=== PATIENT | female | born 1985 | race Caucasian/White ===

== ENCOUNTER → 2019-01-24 16:26 | Outpatient (CLI) | payer OTHER, SELFPAY | PROVIDERS: PCP Family Medicine; Visit Provider Family Medicine ==

== ENCOUNTER → 2019-01-27 08:11 | Outpatient (CLI) | payer OTHER, SELFPAY ==
[2019-01-27 09:56] LABS: Add Manual Diff / Slide Review NO; Basophils Absolute Auto 0 /uL (0-100); Basophils Percent Auto 0.5 % (0-2); Eosinophils Absolute Auto 0 /uL (0-450); Eosinophils Percent Auto 0.3 % (2-4); Hematocrit 41.3 % (36-46); Hemoglobin 13.8 g/dL (12.0-16.0); Lymphocytes Absolute Auto 1800 /uL (1100-4500); Lymphocytes Percent Auto 28.8 % (25-40); Mean Corpuscular HGB Conc 33.5 % (30-36); Mean Corpuscular Hemoglobin 30.7 PG (26-34); Mean Corpuscular Volume 91.7 fL (80-100); Monocytes Absolute Auto 300 /uL (0-900); Monocytes Percent Auto 4.3 % (3-14); Neutrophils Absolute Auto 4000 /uL (1500-7000); Neutrophils Percent Auto 66.1 % (50-75); Platelet Count 287 X10^3/uL (150-400); Red Cell Distribution Width 13.5 % (11.6-14.8); White Blood Cell Count 6.1 X10^3/uL (4.5-11.0)
[2019-01-27 09:57] LABS: Appearance Urine UA CLEAR; Bilirubin Urine UA NEGATIVE (NEGATIVE); Color Urine UA YELLOW; Glucose Urine UA NEGATIVE (Negative); Ketones Urine UA NEGATIVE (NEGATIVE); Leukocyte Esterase Urine UA NEGATIVE (NEGATIVE); Nitrite Urine UA NEGATIVE (Negative); Occult Blood Urine UA NEGATIVE (Negative); Protein Urine UA NEGATIVE (Negative); Urobilinogen Urine UA 0.2 E.U./dL (0.2)
[2019-01-27 10:28] LABS: Alanine Aminotransferase 23 IU/L (9-52); Albumin 4.4 g/dL (3.5-5.0); Albumin Globulin Ratio 1.7 (1.0-2.8); Alkaline Phosphatase 42 U/L (38-126); Aspartate Aminotransferase 19 IU/L (14-36); BUN Creatinine Ratio 11.4 (6-22); Bilirubin Total 0.6 mg/dL (0.2-1.3); Blood Urea Nitrogen 8 mg/dL (7-17); Calcium 9.3 mg/dL (8.4-10.2); Carbon Dioxide 26 mmol/L (22-32); Chloride 102 mmol/L (98-107); Cholesterol 166 mg/dL (140-199); Estimated Glomerular Filt Rate > 60.0 mL/min (>60); Globulin 2.6 g/dL (1.7-4.1); Glucose 87 mg/dL (70-100); HDL Cholesterol 98 mg/dL (40-60); HEMOLYSIS < 15 (0-50); LDL Cholesterol Calculated 53 mg/dL (<100); Potassium 4.6 mmol/L (3.4-5.1); Sodium 138 mmol/L (137-145); Triglycerides 75 mg/dL (35-150)
[2019-01-27 10:52] LABS: Thyroid Stimulating Hormone 1.11 uIU/mL (0.47-4.68)
[2019-01-27 11:15] LABS: HIV 1 and 2 Antibody NEGATIVE (NEGATIVE)
[2019-01-30 10:39] LABS: RPR Screen Nonreactive (Nonreactive)
== END ==
PROVIDERS: PCP Family Medicine; Visit Provider Family Medicine
DX: Z00.00 Encounter for general adult medical examination without abnormal findings (principal); N80.9 Endometriosis, unspecified; Z20.2 Contact with and (suspected) exposure to infections with a predominantly sexual mode of transmission; Z13.220 Encounter for screening for lipoid disorders; Z13.29 Encounter for screening for other suspected endocrine disorder
CPT/HCPCS: 36415; 80053; 80061; 81003; 84443; 85025; 86592; 86703

== ENCOUNTER 2019-08-13 17:35 | Emergency (ER) | payer OTHER, SELFPAY ==
[2019-08-13 17:36] VITALS: BP 127/78; PULSE 74; RESP 18; TEMP 36.6; O2SAT 100; BMI 22.8
[2019-08-13] MEDS: TET,DIPH,PERTUSS(ACELL),VAC/PF 0.5 ML SYRINGE IM (17:56)
[2019-08-13] MEDS: PROPARACAINE 0.5% OPHTH SOL 1 DROPS EYE-RIGHT (17:57)
[2019-08-13 19:41] VITALS: BP 112/72; PULSE 78; RESP 17; O2SAT 99
--- NOTE | 2019-08-13 21:04 | ED.EYEPROB ---
HPI - Eye Problem <Ros Kunz, [employer] - Last Filed: 08/13/19 21:11> General Chief complaint: Eye Problems Stated complaint: Stick into eye at right eye at work Time Seen by Provider: 08/13/19 18:56 Source: patient Mode of arrival: Ambulatory Limitations: no limitations History of Present Illness HPI Narrative: The patient is a 33-year-old female marijuana user with history of eye injury who presents with a chief complaint of ?I have a corneal abrasion my eye.She states that she was struck in the eye by a stick today at work. She states her tetanus is not up-to-date. She denies any visual changes. She states her vision as as per usual. Though her eyes painful. She states that to this eye, has astigmatism in that eye. She denies any double vision or haloing of lights. She denies blurry vision. She states that her vision is usual for that eye. She presents to the emergency department stating she just needs ?fluorescein and a Wood's lamp.She states she rinsed her eye out. She denies any foreign body sensation. She does not wear contacts. She states that the pain feels like a scratch on the top of her eye. Related Data Home Medications Medication Instructions Recorded Confirmed Vitamins (PRENAVITE) 1 tab PO QDAY #0 09/05/16 01/24/19 cholecalciferol (vitamin D3) 1,000 PO BID #0 01/31/17 01/24/19 [Vitamin D3] vitamin B complex [B 1 tab PO QDAY #0 01/31/17 01/24/19 Complex-Vitamin B12] sumatriptan succinate [Imitrex] 25 mg PRN PRN #0 06/08/17 01/24/19 omega-3 fatty acids-fish oil 300 1 cap PO BID 01/27/18 01/24/19 mg-1,000 mg capsule topiramate 25 mg tablet 50 mg PO BID #0 tab 01/27/18 01/24/19 Previous Rx's Medication Instructions Recorded gabapentin [Neurontin] 300 mg PO TID #90 cap 01/31/17 meloxicam 7.5 mg tablet 7.5 mg PO AMCC #30 tab 01/27/18 pantoprazole 40 mg tablet,delayed 40 mg PO BID #180 01/27/18 release drospirenone 3 mg-ethinyl 1 tab PO DAILY #84 tab 06/12/19 estradiol 0.02 mg tablet polymyxin B sulf-trimethoprim 1 drop EYE-RIGHT QID 5 Days #10 ml 08/13/19 Allergies Allergy/AdvReac Type Severity Reaction Status Date / Time tramadol [From ULTRAM] Allergy Unknown Verified 01/24/19 15:30 Review of Systems <ANA ROSA El - Last Filed: 08/13/19 21:11> Review of Systems Narrative: GENERAL: Denies chills, fatigue, malaise, fever, sweats. HEENT: See HPI RESPIRATORY: Denies dyspnea, cough, wheezing, hemoptysis, sputum. CARDIOVASCULAR: Denies chest pain, palpitations, orthopnea, edema, GASTROINTESTINAL: Denies nausea, vomiting, abdominal pain, diarrhea, constipation, melena. : Denies dysuria, frequency, incontinence, hematuria, urinary retention. MUSCULOSKELETAL: denies weakness, joint pain, or bony pain SKIN: Denies rash, skin lesions, or other NEUROLOGIC: Denies weakness, headache, numbness, change in speech, confusion, seizures, incoordination. PSYCHIATRIC: No concerning psychosocial issues. 12 point review of systems is negative except for those stated above Patient History <ANA ROSA El - Last Filed: 08/13/19 21:11> Medical History Anemia (Inactive ~2009) Anemia (Resolved 2009) Ankle pain (Inactive ~2008) Ankle pain (Chronic 2008) Anxiety (Inactive ~2009) Anxiety (Chronic 2009) Chronic headaches (Chronic 2009) Depression (Inactive ~2009) Depression (Chronic 2009) ETD (eustachian tube dysfunction) (Chronic 2008) Foot pain (Inactive ~2008) Foot pain (Chronic 2008) Gastric ulcer (Inactive ~2007) Gastric ulcer (Resolved 2007) Gastroparesis (Inactive ~2010) Gastroparesis (Resolved 2010) GERD (gastroesophageal reflux disease) (Inactive ~2007) GERD (gastroesophageal reflux disease) (Chronic 2007) GI bleed (Inactive ~2007) GI bleeding (Resolved 2007) Headache (Inactive ~2009) Hearing loss (Inactive ~2009) Hearing loss (Chronic 2009) Heavy menses (Inactive ~2001) History of heavy periods (Chronic 2001) History of recurrent ear infection (Inactive ~1990) History of recurrent ear infection (Chronic 1990) IBS (irritable bowel syndrome) (Chronic 2008) Irritable bowel syndrome (Inactive ~2008) Knee pain (Inactive ~2005) Ovarian cyst (Inactive ~2008) Ovarian cyst (Resolved 2008) Right knee pain (Chronic 2005) Shoulder pain (Inactive ~2011) Shoulder pain (Chronic 2011) Tinnitus (Inactive ~2008) Tinnitus (Chronic 2008) Surgical History History of Adams fundoplication (Resolved 08/2011) S/P tubal ligation (Resolved) Status post delivery (Resolved 04/12/13) Status post delivery (Resolved 12/20/16) Status post knee surgery (Resolved 2005) Status post myringotomy with tube placement of both ears (Resolved) Family History Brother Age: 28 Gastroesophageal reflux disease without esophagitis Multiple gastric ulcers Mother Age: 56 Elias's esophagus without dysplasia Gastroesophageal reflux disease without esophagitis Diverticulitis of intestine without perforation or abscess without bleeding, unspecified part of intestinal tract Sister Age: 41 Celiac sprue Lyme disease Gastroesophageal reflux disease, esophagitis presence not specified Brother No problems noted. Grandfather Heart disease Hypertension Hyperlipidemia Grandmother Anemia Rheumatoid arthritis Atrial fibrillation Grandmother Kidney failure Diabetes mellitus Heart disease Hyperlipidemia Hypertension Social History Smoking Status: Never smoker alcohol intake frequency: holidays/special occasions only Substance Use Type: marijuana Exam <ANA ROSA El - Last Filed: 08/13/19 21:11> Narrative Exam Narrative: GENERAL: This is a well-nourished, well-developed patient, in mild distress. HEAD: Atraumatic. Normocephalic. No temporal or scalp tenderness. EYES: Pupils equal round and reactive. Extraocular motions intact. No scleral icterus. No injection or drainage. Corneal abrasion noted right eye 2 x 3 mm corneal abrasion noted right eye. EOMs intact. No pain on EOMs. No obvious foreign body ENT: Nose without bleeding, purulent drainage or septal hematoma. Throat without erythema, tonsillar hypertrophy or exudate. Uvula midline. Airway patent. NECK: Trachea midline. No JVD or lymphadenopathy. Supple, nontender, no meningeal signs. CARDIOVASCULAR: Regular rate and rhythm. RESPIRATORY: No cough. No increased respiratory effort no accessory muscle use EXTREMITIES: No clubbing, cyanosis, or edema. No joint tenderness, effusion, or edema noted. BACK: Nontender without deformity or crepitance. No flank tenderness. NEURO: AOx3. SKIN: No rash or erythema. Initial Vital Signs Initial Vital Signs: Vital Signs Temperature 97.9 F 08/13/19 17:36 Pulse Rate 74 08/13/19 17:36 Respiratory Rate 18 08/13/19 17:36 Blood Pressure 127/78 08/13/19 17:36 Pulse Oximetry 100 08/13/19 17:36 <Ros Rabago DO - Last Filed: 08/14/19 01:30> Initial Vital Signs Initial Vital Signs: Vital Signs Temperature 97.9 F 08/13/19 17:36 Pulse Rate 74 08/13/19 17:36 Respiratory Rate 18 08/13/19 17:36 Blood Pressure 127/78 08/13/19 17:36 Pulse Oximetry 100 08/13/19 17:36 Course <ANA ROSA El - Last Filed: 08/13/19 21:11> Orders Ordered: Discontinued Medications Diphtheria/Tetanus/Acell Pertussis (Adacel) 0.5 ml IM .ONCE ONE Stop: 08/13/19 17:52 Last Admin: 08/13/19 17:56 Dose: 0.5 ml Documented by: GABY Proparacaine HCl (Parcaine 0.5% Ophth Ileana) 1 drops EYE-RIGHT PRN PRN PRN Reason: Pain, Moderate (4-6) Last Admin: 08/13/19 17:57 Dose: 1 drop Documented by: GABY Vital Signs Vital signs: Vital Signs - 8 hr 08/13/19 17:36 08/13/19 19:41 Temperature 97.9 F Pulse Rate 74 78 Respiratory Rate 18 17 Blood Pressure 127/78 Blood Pressure [Right Arm] 112/72 Pulse Oximetry 100 99 <Ros Rabago DO - Last Filed: 08/14/19 01:30> Orders Ordered: Discontinued Medications Diphtheria/Tetanus/Acell Pertussis (Adacel) 0.5 ml IM .ONCE ONE Stop: 08/13/19 17:52 Last Admin: 08/13/19 17:56 Dose: 0.5 ml Documented by: GABY Proparacaine HCl (Parcaine 0.5% Ophth Ileana) 1 drops EYE-RIGHT PRN PRN PRN Reason: Pain, Moderate (4-6) Last Admin: 08/13/19 17:57 Dose: 1 drop Documented by: GABY Vital Signs Vital signs: Vital Signs - 8 hr 08/13/19 17:36 08/13/19 19:41 Temperature 97.9 F Pulse Rate 74 78 Respiratory Rate 18 17 Blood Pressure 127/78 Blood Pressure [Right Arm] 112/72 Pulse Oximetry 100 99 MDM - Eye Problem <Ros Quintanillamer, [employer] - Last Filed: 08/13/19 21:11> MDM Narrative Medical decision making narrative: The patient is a 33-year-old female who presents with a chief complaint of corneal abrasion. She has 1 on exam. She states that her vision is normal for her, and her pupils are equal round reactive to light. I placed her on antibiotic drops encouraged to follow up with primary care provider as well as her eye provider. Encouraged use of protective glasses in the future. Patient has no questions or concerns upon discharge and states understanding return precautions as well as follow-up care. Patient states that she is well-versed in eye injuries as she has had many. Discussed at length coming back to the emergency department for any acute concerns regarding her vision. Discharge Plan Departure Patient Disposition: Home Clinical Impression: Abrasion of cornea, right Qualifiers: Encounter type: initial encounter Qualified Code(s): S05.01XA - Injury of conjunctiva and corneal abrasion without foreign body, right eye, initial encounter Discharge Date/Time: 08/13/19 19:40 Instructions: DI for Corneal Abrasion Activity Restrictions/Additional Instructions: Today we updated your tetanus. I found a corneal abrasion. Please come back to the emergency department for any acute concerns such as decreased vision etc I have [facility] a [facility] Please follow up with primary care provider Please follow up with your eye provider Please use protective glasses if there is any risk of eye injury in the future Prescriptions: New polymyxin B sulf-trimethoprim 10,000 unit- 1 mg/mL drops 1 drop EYE-RIGHT QID 5 Days Qty: 10 RF: 0 No Action omega-3 fatty acids-fish oil [Fish Oil] 300-1,000 mg capsule 1 cap PO BID RF: 0 meloxicam [Mobic] 7.5 mg tablet 7.5 mg PO AMCC Qty: 30 RF: 0 pantoprazole [Protonix] 40 mg tablet,delayed release (DR/EC) 40 mg PO BID Qty: 180 RF: 3 Vitamins (PRENAVITE) 1 tab PO QDAY Qty: 0 RF: 0 vitamin B complex [B Complex-Vitamin B12] 1 EACH tablet 1 tab PO QDAY Qty: 0 RF: 0 cholecalciferol (vitamin D3) [Vitamin D3] 1,000 UNIT tablet 1,000 PO BID Qty: 0 RF: 0 gabapentin [Neurontin] 300 MG capsule 300 mg PO TID Qty: 90 RF: 2 sumatriptan succinate [Imitrex] 25 MG tablet 25 mg PRN PRNQty: 0 RF: 0 topiramate [Topamax] 25 mg tablet 50 mg PO BID Qty: 0 RF: 0 drospirenone-ethinyl estradiol [KENISHA (28)] 3-0.02 mg tablet 1 tab PO DAILY Qty: 84 RF: 3 Referrals: Lenore Peres DO [Primary Care Provider] - Stand Alone Forms: Work Release Note
== END 2019-08-13 19:40 | disposition home or self-care (01) ==
PROVIDERS: Emergency Provider Nurse Practitioner Family; PCP Family Medicine
DX: S05.01XA Injury of conjunctiva and corneal abrasion without foreign body, right eye, initial encounter (principal); W22.8XXA Striking against or struck by other objects, initial encounter; Z23 Encounter for immunization; Y99.0 Civilian activity done for income or pay
CPT/HCPCS: 90471; 99283; 90715

== ENCOUNTER → 2020-07-08 15:21 | Outpatient (CLI) | payer OTHER, SELFPAY ==
--- NOTE | 2020-07-08 15:22 | DI.US.S_ITS ---
PROCEDURE: US THYROID INDICATIONS: family hx thyroid CA TECHNIQUE: Real-time scanning was performed of the thyroid gland, with image documentation. COMPARISON: None. FINDINGS: The right thyroid lobe measures 1.2 x 1.3 x 4.5 cm. The left thyroid lobe measures 1.1 x 1.2 x 4.8 cm. Both thyroid lobes have a normal echogenicity. No thyroid nodule demonstrated. The isthmus is normal in thickness. IMPRESSION: Normal thyroid ultrasound. Dictated by: Landon Roman M.D. on 07/08/2020 at 15:57 Approved by: Landon Roman M.D. on 07/08/2020 at 15:58
== END ==
PROVIDERS: PCP Registered Nurse Diabetes Educator; Referring Provider Registered Nurse Diabetes Educator; Visit Provider Registered Nurse Diabetes Educator
DX: Z13.29 Encounter for screening for other suspected endocrine disorder (principal); Z80.8 Family history of malignant neoplasm of other organs or systems
CPT/HCPCS: 76536

== ENCOUNTER → 2020-10-14 16:11 | Outpatient (CLI) | payer OTHER, SELFPAY ==
--- NOTE | 2020-10-14 16:13 | DI.RAD.S_ITS ---
PROCEDURE: XR HAND LT 2V INDICATIONS: bilateral hand pain TECHNIQUE: 3 views of the hand(s) acquired. COMPARISON: None. FINDINGS: Bones: No fractures or dislocations. Carpal bones are normally aligned. No suspicious bony lesions. Soft tissues: No suspicious soft tissue calcifications. IMPRESSION: Normal left hand radiographs. Dictated by: Mattie Phipps M.D. on 10/14/2020 at 20:19 Approved by: Mattie Phipps M.D. on 10/14/2020 at 20:20
--- NOTE | 2020-10-14 16:13 | DI.RAD.S_ITS ---
PROCEDURE: XR HAND RT 2V INDICATIONS: bilateral hand pain TECHNIQUE: 3 views of the hand(s) acquired. COMPARISON: None. FINDINGS: Bones: No fractures or dislocations. Carpal bones are normally aligned. No suspicious bony lesions. Soft tissues: No suspicious soft tissue calcifications. IMPRESSION: Normal right hand radiographs. Dictated by: Mattie Phipps M.D. on 10/14/2020 at 20:19 Approved by: Mattie Phipps M.D. on 10/14/2020 at 20:19
[2020-10-14 17:54] LABS: Add Manual Diff / Slide Review NO; Basophils Absolute Auto 0 /uL (0-100); Basophils Percent Auto 0.5 % (0-2); Eosinophils Absolute Auto 0 /uL (0-450); Eosinophils Percent Auto 0.2 % (2-4); Hematocrit 40.1 % (36-46); Hemoglobin 13.4 g/dL (12.0-16.0); Lymphocytes Absolute Auto 3100 /uL (1100-4500); Lymphocytes Percent Auto 40.1 % (25-40); Mean Corpuscular HGB Conc 33.4 % (30-36); Mean Corpuscular Hemoglobin 30.5 PG (26-34); Mean Corpuscular Volume 91.2 fL (80-100); Monocytes Absolute Auto 500 /uL (0-900); Monocytes Percent Auto 6.6 % (3-14); Neutrophils Absolute Auto 4000 /uL (1500-7000); Neutrophils Percent Auto 52.6 % (50-75); Platelet Count 302 X10^3/uL (150-400); Red Cell Distribution Width 12.7 % (11.6-14.8); White Blood Cell Count 7.7 X10^3/uL (4.5-11.0)
[2020-10-14 18:10] LABS: C-Reactive Protein Quant 0.5 mg/dL (<1.0)
[2020-10-14 18:11] LABS: Rheumatoid Factor < 8.6 IU/mL (<12.0)
[2020-10-14 18:17] LABS: Erythrocyte Sedimentation Rate 8 MM/HR (0-20)
[2020-10-16 21:53] LABS: CCP Antibodies IgG/IgA 4 units (0-19)
[2020-10-18 15:12] LABS: ANA Screen, IFA Positive (.)
== END ==
PROVIDERS: PCP Registered Nurse Diabetes Educator; Referring Provider Registered Nurse Diabetes Educator; Visit Provider Registered Nurse Diabetes Educator
DX: M79.641 Pain in right hand (principal); M79.642 Pain in left hand
CPT/HCPCS: 36415; 73120; 85025; 85651; 86038; 86140; 86200; 86430

== ENCOUNTER → 2020-11-23 12:29 | Outpatient (CLI) | payer OTHER, SELFPAY ==
--- NOTE | 2020-11-23 12:30 | DI.RAD.S_ITS ---
PROCEDURE: XR CERVICAL SPINE 2V OR 3V INDICATIONS: Evaluate cause of numbness, tingling, and pain in arms TECHNIQUE: 3 view(s) of the cervical spine were acquired. COMPARISON: None. FINDINGS: Bones: No fractures or dislocations to the T2 level. The lateral masses of C1 appear intact on the odontoid view. No suspicious bony lesions. Soft tissues: No prevertebral soft tissue swelling. IMPRESSION: Unremarkable cervical spine plain films. No acute fracture or dislocation or significant spondylitic change identified. Dictated by: Emiliano Hernández M.D. on 11/23/2020 at 12:00 Approved by: Emiliano Hernández M.D. on 11/23/2020 at 12:00
== END ==
PROVIDERS: PCP Registered Nurse Diabetes Educator; Referring Provider Family Medicine; Visit Provider Family Medicine
DX: M79.602 Pain in left arm (principal); M79.601 Pain in right arm; R20.2 Paresthesia of skin; R20.0 Anesthesia of skin
CPT/HCPCS: 72040

== ENCOUNTER → 2020-11-24 15:51 | Outpatient (CLI) | payer OTHER, SELFPAY ==
--- NOTE | 2020-11-24 15:53 | DI.RAD.S_ITS ---
PROCEDURE: XR SHOULDER RT MIN 2V INDICATIONS: Chronic shoulder pain TECHNIQUE: 3 views of the shoulder were acquired. COMPARISON: None. FINDINGS: Bones: No fractures or dislocations. No suspicious bony lesions. Visualized ribs appear intact. Soft tissues: No suspicious soft tissue calcifications. IMPRESSION: No shoulder fracture or dislocation. No finding to explain patient's symptoms. Dictated by: Wild Moody M.D. on 11/24/2020 at 16:21 Approved by: Wild Moody M.D. on 11/24/2020 at 16:26
--- NOTE | 2020-11-24 15:53 | DI.RAD.S_ITS ---
PROCEDURE: XR SHOULDER LT MIN 2V INDICATIONS: Chronic shoulder pain TECHNIQUE: 3 views of the shoulder were acquired. COMPARISON: None. FINDINGS: Bones: No fractures or dislocations. No suspicious bony lesions. Visualized ribs appear intact. Soft tissues: No suspicious soft tissue calcifications. IMPRESSION: Unremarkable radiographic examination of left shoulder. Dictated by: Wild Moody M.D. on 11/24/2020 at 16:12 Approved by: Wild Moody M.D. on 11/24/2020 at 16:14
--- NOTE | 2020-11-24 15:53 | DI.RAD.S_ITS ---
PROCEDURE: XR LUMBAR SPINE 2-3V INDICATIONS: chronic low back pain TECHNIQUE: 3 views of the lumbar spine were acquired. COMPARISON: None. FINDINGS: Bones: 5 [id number] vertebrae are present. There is normal bony alignment. Mild bilateral facet arthrosis at L5-S1 level is seen. No vertebral body compression fractures. No suspicious bony lesions. Soft tissues: Overlying bowel gas pattern is normal. No suspicious soft tissue calcifications. IMPRESSION: Mild bilateral facet arthrosis at L5-S1 level. No acute compression fracture or spondylolisthesis. Dictated by: Wild Moody M.D. on 11/24/2020 at 16:26 Approved by: Wild Moody M.D. on 11/24/2020 at 16:27
== END ==
PROVIDERS: PCP Registered Nurse Diabetes Educator; Referring Provider Family Medicine; Visit Provider Family Medicine
DX: M54.5 Low back pain (principal); M47.817 Spondylosis without myelopathy or radiculopathy, lumbosacral region; M19.011 Primary osteoarthritis, right shoulder; M19.012 Primary osteoarthritis, left shoulder; M54.12 Radiculopathy, cervical region; M48.02 Spinal stenosis, cervical region; G89.29 Other chronic pain
CPT/HCPCS: 72100; 73030

== ENCOUNTER → 2020-12-14 08:34 | Outpatient (CLI) | payer OTHER, SELFPAY ==
--- NOTE | 2020-12-14 08:35 | DI.MRI.S_ITS ---
PROCEDURE: MR CERVICAL SPINE WO CON INDICATIONS: Chronic neck pain with radiculopathy TECHNIQUE: Noncontrast sagittal T1 spin echo and T2 fast spin echo, sagittal STIR, foraminal oblique sagittal T2 fast spin echo, and axial gradient echo or T2 fast spin echo through the cervical spine. COMPARISON: [facility], , C-SPINE WITHOUT CONTRAST, 11/11/2017, 9:17. FINDINGS: Image quality: Excellent. Alignment and Curvature: There is normal bony alignment. Bone Marrow: Marrow demonstrates normal overall signal. Spinal Cord: Visualized spinal cord has normal size and signal. No cerebellar tonsillar herniation. Paraspinous Soft Tissues: No paravertebral masses. Prevertebral soft tissues are normal in thickness. C2-C3: Unchanged. Mild uncovertebral joint hypertrophy. No canal stenosis or foraminal stenosis. C3-C4: Minimal disc bulge. No central canal stenosis. Progression of right uncovertebral joint hypertrophy which now results in moderate right foraminal narrowing and flattening deformity on the exiting right C4 nerve root. C4-C5: Mild disc bulge. No central canal stenosis. Bilateral uncovertebral joint hypertrophy. [id number] right foraminal narrowing with mild flattening deformity on the exiting right C5 nerve root. Left foramen is patent. C5-C6: No canal stenosis or foraminal stenosis. Bilateral facet hypertrophy. C6-C7: Disc bulge again noted. No canal stenosis. Unchanged small left foraminal disc protrusion resulting in mild to moderate left foraminal narrowing and mild flattening deformity on the exiting left C7 nerve root. Right uncovertebral joint hypertrophy has progressed, with mild right foraminal narrowing. C7-T1: No canal stenosis or foraminal stenosis. IMPRESSION: 1. There is no central canal stenosis. There are multilevel disc bulges. 2. A small left foraminal disc protrusion at C6-C7 is unchanged, with mild to moderate left foraminal narrowing and mild flattening deformity on the exiting left C7 nerve root. 3. At C3-C4, progression of right uncovertebral joint hypertrophy results in moderate right foraminal narrowing. 4. Multilevel foraminal narrowing as described above. Dictated by: Emiliano Hernández M.D. on 12/15/2020 at 8:49 Approved by: Emiliano Hernández M.D. on 12/15/2020 at 9:26
== END ==
PROVIDERS: PCP Registered Nurse Diabetes Educator; Referring Provider Family Medicine; Visit Provider Family Medicine
DX: M48.02 Spinal stenosis, cervical region (principal); M50.123 Cervical disc disorder at C6-C7 level with radiculopathy
CPT/HCPCS: 72141

== ENCOUNTER → 2021-07-08 14:19 | Outpatient (CLI) | payer OTHER, SELFPAY | PROVIDERS: PCP Registered Nurse Diabetes Educator; Referring Provider Registered Nurse Diabetes Educator; Visit Provider Registered Nurse Diabetes Educator | DX: Z20.822 Contact with and (suspected) exposure to COVID-19 (principal) | CPT/HCPCS: 36415; 86769 ==

== ENCOUNTER → 2022-01-06 14:44 | Outpatient (CLI) | payer OTHER, SELFPAY ==
[2022-01-06 16:19] LABS: Hematocrit 39.8 % (36-46); Hemoglobin 13.8 g/dL (12.0-16.0); Mean Corpuscular HGB Conc 34.7 % (30-36); Mean Corpuscular Hemoglobin 31.2 PG (26-34); Mean Corpuscular Volume 89.8 fL (80-100); Platelet Count 328 X10^3/uL (150-400); Red Blood Cell Count 4.43 X10^6/uL (4.0-5.2); Red Cell Distribution Width 13.4 % (11.6-14.8); White Blood Cell Count 8.7 X10^3/uL (4.5-11.0)
[2022-01-06 16:43] LABS: Alanine Aminotransferase 20 IU/L (<35); Albumin 4.7 g/dL (3.5-5.0); Albumin Globulin Ratio 1.4 (1.0-2.8); Alkaline Phosphatase 50 U/L (38-126); Aspartate Aminotransferase 32 IU/L (14-36); BUN Creatinine Ratio 10.8 (6-22); Bilirubin Total 0.6 mg/dL (0.2-1.3); Blood Urea Nitrogen 8 mg/dL (7-17); Calcium 9.4 mg/dL (8.4-10.2); Carbon Dioxide 28 mmol/L (22-32); Chloride 103 mmol/L (98-107); Estimated Glomerular Filt Rate > 60 mL/min (>60); Globulin 3.4 g/dL (1.7-4.1); Glucose 91 mg/dL (70-100); HEMOLYSIS < 15 (0-50); Magnesium 1.9 mg/dL (1.6-2.3); Phosphorous 3.2 mg/dL (2.5-4.5); Potassium 3.7 mmol/L (3.4-5.1); Sodium 138 mmol/L (137-145); Total Protein 8.1 g/dL (6.3-8.2)
== END ==
PROVIDERS: PCP Registered Nurse Diabetes Educator; Referring Provider Registered Nurse Diabetes Educator; Visit Provider Registered Nurse Diabetes Educator
DX: Z86.39 Personal history of other endocrine, nutritional and metabolic disease (principal); K31.84 Gastroparesis; N64.4 Mastodynia
CPT/HCPCS: 36415; 80053; 83735; 84100; 85027

== ENCOUNTER → 2022-04-21 16:30 | Outpatient (CLI) | payer OTHER, SELFPAY ==
[2022-04-21 17:38] LABS: COVID19 -Nasal RAPID Negative (Negative)
== END ==
PROVIDERS: PCP Registered Nurse Diabetes Educator; Visit Provider Obstetrics & Gynecology
DX: Z01.812 Encounter for preprocedural laboratory examination (principal); Z20.822 Contact with and (suspected) exposure to COVID-19
CPT/HCPCS: 87635

== ENCOUNTER 2022-04-22 08:10 | Day surgery (SDC) | payer OTHER, SELFPAY ==
[2022-04-22] VITALS (9 sets, daily range): BP systolic 91–121; BP diastolic 55–72; PULSE 64–81; RESP 11–26; TEMP 36.6–36.9; O2SAT 93–99; BMI 26.7
[2022-04-22] MEDS: LACTATED RINGERS 1,000 ML 100 ML IV ×2 (08:23→10:23)
--- NOTE | 2022-04-22 09:24 | PM.PREOP ---
Pre-operative Note COVID-19 COVID-19 status: Negative Result date/Date tested (Pos, Neg/Pending): 04/21/22 Criteria for continued procedure: Non-surgical alternatives not available or appropriate per current SOC Interval Note History & Physical reviewed/Exam performed by Physician: Yes Changes to H&P: No H&P completed within 30 days and has changed as indicated here:: 04/05/22
[2022-04-22] MEDS: CEFAZOLIN IV (09:40)
[2022-04-22] MEDS: NACL 0.9% IV (09:40)
[2022-04-22] MEDS: BUPIVACAINE 0.5% W/ EPI (PF) 30 ML VIAL INJ (10:02)
[2022-04-22] MEDS: ACETAMINOPHEN IV 1,000 MG/100 ML VIAL 400 MG IV (10:02)
--- NOTE | 2022-04-22 10:08 | SUR.OPER ---
Lithotomy on padded OR bed. [facility] Pad Positioner under torso. Head on pillow, arms padded and tucked at sides. Legs secured in padded yellow fins stirrups.
[2022-04-22] MEDS: LACTATED RINGERS 1,000 ML 42 ML IV (10:30)
[2022-04-22] MEDS: ROPIVACAINE 0.2% PF 2 MG/ML 10ML AMP 20 ML INJ (10:41)
--- NOTE | 2022-04-22 11:05 | P.OP_ITS ---
Operative Date/Time/Diagnoses Date of procedure: 04/22/22 Time of procedure: 11:05 Pre-op diagnosis: Pelvic pain Dysmenorrhea Endometriosis Post-op diagnosis: same Procedure & Clinicians Procedure: Procedures Operation Date: 04/22/22 09:45 Actual Procedure Side Surgeon p Laparoscopic Supracervical Hysterectomy, right salpingo-oophorectomy, left salpingectomy Katharine Dumont MD Indications: Pelvic pain Dysmenorrhea Endometriosis Surgeon: Katharine Dumont Development Team Lead: Bev Roa Anesthesia Type: General and Local Operative Notes Findings: 6 week size stuck uterus with adhesions between the lower uterine segment and and bladder Left tube filled with blood Normal right tube Adhesions between the left tube and the pelvic sidewall Cyst on the right ovary Normal left ovary Normal liver and gallbladder Closure Type: primary Specimen(s): left tube, right tube & ovary and uterus Applied: catheter (Removed at the end of the case) Estimated blood loss (mL): 50 Blood products transfused: none Procedure in detail: The patient was taken to the operating room where she was placed in the dorsal supine position. After adequate general endotracheal anesthesia was achieved, she was placed in the dorsal lithotomy position, and prepped and draped in the usual sterile fashion. A time-out was performed. A bivalve speculum was placed into the vagina and the anterior lip of the cervix was grasped with a single- tooth tenaculum. The cervical os was sequentially dilated until the Zumi uterine manipulator could pass easily into the endometrial cavity. The single- tooth tenaculum was removed from the anterior lip of the cervix. The bivalve speculum was removed from the vagina. Attention was then turned to the abdomen where 6 cc of 0.5% Marcaine with epinephrine were injected in the umbilical fold. A 5 mm incision was made. The Veress needle was placed into the peritoneal cavity, and its placement confirmed by aspiration and drop test. The abdominal cavity was insufflated with 3.1 L of CO2. The Veress needle was removed, and a 5 mm trocar was placed without difficulty. Two other 5 minutes incisions were made 4 cm lateral to the midline at the level of the umbilicus af ter 6 cc of 0.5% Marcaine with epinephrine were injected. Two 5 mm trocars were placed under direct visualization. The right tube and ovary were grasped with an atraumatic grasper. Using the power seal, the infundibulopelvic ligament on the right side was cauterized and cut. The round ligament was cauterized and cut. The broad ligament was cauterized and cut. Using the Endo Sung, the adhesions between the uterus and bladder were taken down with cut only. The bladder flap was created using the Endo Sung. The uterine arteries on the right side were extensively cauterized. Attention was then turned to the left side where the left tube was grasped with an atraumatic grasper. There were some adhesions between the left tube in the pelvic sidewall. The fimbriated end was grasped with an atraumatic grasper. Using the Endo Sung the tube was dissected off of the pelvic sidewall. The mesosalpinx was then cauterized and cut with the power seal. The round ligament and broad ligament were cauterized and cut with the power seal. The remainder of the adhesions between the bladder and uterus were taken down using the Endo Sung. The remainder of the bladder flap was created using the power seal from the left side. The bladder was dissected off of the lower uterine segment and cervix. The uterine arteries on the left side were extensively cauterized with the powerseal. The Zumi uterine manipulator was removed from the uterus and a moistened sponge stick was placed into the vagina. The Joanna loop was placed over the uterus down to 2 cm above the uterosacral ligaments. The uterus was amputated from the cervix. There was a small amount of bleeding coming from the cervical os. The spatula cautery was used to cauterize the cervical os. There was a small amount of bleeding from the posterior edge of the cervix and this was cauterized with the spatula as well. The pelvis was copiously irrigated with warm normal saline. There was no bleeding noted. 6 cc of 0.5% Marcaine with epinephrine were injected in the midline through the previous Pfannenstiel incision. A 2 cm incision was made the 12 mm trocar was placed into the peritoneal cavity without difficulty. The uterus was grasped with an atraumatic grasper from the right trocar. The endobag was placed through the suprapubic trocar and opened. The tubes, uterus, and right ovary were placed into the bag. The trocar was removed. The edges of the bag were brought up through the incision. The fascia was extended slightly on both sides. The uterus was grasped with a Marbella. The Yoshi was placed into the bag. The uterus was morcellated in 2 pieces. The tubes and ovaries were also removed from the bag. The bag and Yoshi were removed from the peritoneal cavity. The fascia was closed on the suprapubic incision using 0 Vicryl. The abdominal cavity was reinsufflated. The pelvis was examined and there was no bleeding noted. 20 cc of 0.2% ropivacaine were placed over the pedicles. The instruments were removed from the abdomen. The CO2 was allowed to escape. The trocars were removed from the abdomen. The suprapubic incision was closed with 2 simple interrupted sutures with 3-0 Vicryl. All of the incisions were closed with 4-0 Monocryl in a subcuticular fashion. Steri-Strips and Allevyn dressings were placed. The moistened sponge stick was removed from the vagina. Sponge, lap, and instrument counts were correct x2. The patient tolerated the procedure well, and was taken to PACU in stable condition. Complications: none Post-operative Condition: stable Disposition: PACU Plan for aftercare: Home after recovery
[2022-04-22] MEDS: HYDROMORPHONE 2 MG INJ IV (12:06)
[2022-04-22] MEDS: ONDANSETRON 4 MG/2 ML INJ IV (12:06)
== END 2022-04-22 13:08 | disposition home or self-care (01) ==
PROVIDERS: PCP Registered Nurse Diabetes Educator; Referring Provider Obstetrics & Gynecology; Visit Provider Obstetrics & Gynecology
PROC: 0UT94ZL Resection of Uterus, Supracervical, Percutaneous Endoscopic Approach (ICD-10-PCS; CPT 58542; principal; 2022-04-22 09:45)
DX: R10.2 Pelvic and perineal pain (principal); N94.6 Dysmenorrhea, unspecified; N80.9 Endometriosis, unspecified; N73.6 Female pelvic peritoneal adhesions (postinfective); M79.7 Fibromyalgia; N83.01 Follicular cyst of right ovary
CPT/HCPCS: 58542; J0131; J0330; J0690; J1100; J1170; J2405; J2704; J2765; J2795; J3010

== ENCOUNTER → 2022-06-10 08:39 | Outpatient (CLI) | payer OTHER, SELFPAY ==
--- NOTE | 2022-06-10 08:40 | DI.MG.S_ITS ---
BILATERAL DIGITAL DIAGNOSTIC MAMMOGRAM 3D/2D: 06/10/2022 CLINICAL: Right breast pain. Baseline exam. No prior exams were available for comparison. Both breasts are heterogeneously dense, which may obscure small masses (category c / 51-75% glandular tissue). No significant masses, calcifications, or other findings are seen in either breast. IMPRESSION: NEGATIVE There is no mammographic evidence of malignancy. Based on the Tyrer Cuzick model (a risk assessment model) the patient's lifetime risk is 12.6% and her 10 year risk is 0.8%. According to the ACR, ACS, and NCCN guidelines, an annual breast MRI exam along with mammogram is recommended if the patient's lifetime risk is 20% or greater. This exam was interpreted at Station ID: [id number]. NOTE: For mammograms, a report in lay terms will be sent to the patient. Approximately 15% of breast malignancies will not be visualized mammographically. In the management of a palpable breast mass, a negative mammogram must not discourage biopsy of a clinically suspicious lesion. Electronically Signed By: Landon Roman M.D., jr/himanshu:06/10/2022 09:20:47 letter sent: Normal Exam ACR BI-RADS Category 1: Negative 3341F
== END ==
PROVIDERS: PCP Registered Nurse Diabetes Educator; Referring Provider Registered Nurse Diabetes Educator; Visit Provider Registered Nurse Diabetes Educator
DX: N64.4 Mastodynia (principal)
CPT/HCPCS: 77066; G0279

== ENCOUNTER → 2022-10-07 15:42 | Outpatient (CLI) | payer OTHER, SELFPAY ==
[2022-10-07 17:49] LABS: Add Manual Diff / Slide Review NO; Basophils Absolute Auto 0 /uL (0-100); Basophils Percent Auto 0.3 % (0-2); Eosinophils Absolute Auto 0 /uL (0-450); Eosinophils Percent Auto 0.3 % (2-4); Hematocrit 38.7 % (36-46); Hemoglobin 13.2 g/dL (12.0-16.0); Lymphocytes Absolute Auto 2500 /uL (1100-4500); Lymphocytes Percent Auto 34.9 % (25-40); Mean Corpuscular Hemoglobin 30.5 PG (26-34); Mean Corpuscular Volume 89.8 fL (80-100); Monocytes Absolute Auto 400 /uL (0-900); Monocytes Percent Auto 5.1 % (3-14); Neutrophils Absolute Auto 4200 /uL (1500-7000); Neutrophils Percent Auto 59.4 % (50-75); Platelet Count 279 X10^3/uL (150-400); Red Blood Cell Count 4.31 X10^6/uL (4.0-5.2); Red Cell Distribution Width 14.1 % (11.6-14.8); White Blood Cell Count 7.1 X10^3/uL (4.5-11.0)
[2022-10-07 19:11] LABS: BUN Creatinine Ratio 9.8 (6-22); Blood Urea Nitrogen 6 mg/dL (7-17); Calcium 9.2 mg/dL (8.4-10.2); Carbon Dioxide 29 mmol/L (22-32); Chloride 99 mmol/L (98-107); Estimated Glomerular Filt Rate > 60 mL/min (>60); Glucose 81 mg/dL (70-100); HEMOLYSIS < 15 (0-50); Magnesium 1.9 mg/dL (1.6-2.3); Potassium 3.3 mmol/L (3.4-5.1); Sodium 137 mmol/L (137-145)
[2022-10-07 19:40] LABS: Free T4, Direct Thyroxine 1.15 ng/dL (0.78-2.19)
[2022-10-07 19:53] LABS: Thyroid Stimulating Hormone 2.47 uIU/mL (0.47-4.68)
== END ==
PROVIDERS: PCP Registered Nurse Diabetes Educator; Referring Provider Registered Nurse Diabetes Educator; Visit Provider Registered Nurse Diabetes Educator
DX: R00.2 Palpitations (principal)
CPT/HCPCS: 36415; 80048; 83735; 84439; 84443; 85025

== ENCOUNTER → 2022-10-28 07:56 | Outpatient (CLI) | payer OTHER, SELFPAY ==
--- NOTE | 2022-11-11 08:30 | PM.CARDMON.1 ---
[employer] Specialist Report Referral & Results Date Patient Seen: 10/28/22 Requesting provider: Mir Luna Indication: Palpitations Duration of monitoring (days): 7 Diary information: There were 5 patient triggered events and 4 patient diary entries All of these patient events were associated with sinus rhythm only Data: Minimum heart rate was 42 beats per minute at 05:54 on 11/03/2022 Maximum heart rate was sinus and 176 beats per minute at 13:08 on 11/02/2022 Less than 1% of identified beats were ventricular or supraventricular ectopic in origin, which would classify them as rare. There were no pauses of 3 seconds or longer, episodes of atrial fibrillation or SVT identified on this study Impression: 7 day quality assurance monitor body demonstrating rare PACs and PVCs without correlation with patient reported symptoms to any dysrhythmia Clinical correlation suggested
== END ==
PROVIDERS: PCP Registered Nurse Diabetes Educator; Referring Provider Registered Nurse Diabetes Educator; Visit Provider Registered Nurse Diabetes Educator
DX: R00.2 Palpitations (principal)
CPT/HCPCS: 93242; 93244

== ENCOUNTER → 2022-12-21 08:48 | Outpatient (CLI) | payer OTHER, SELFPAY ==
--- NOTE | 2022-12-21 08:49 | DI.MRI.S_ITS ---
BREAST MRI OF BOTH BREASTS: 12/21/2022 CLINICAL: Genetic susceptibilty to other disease. TECHNIQUE: The patient was placed prone in a dedicated breast imaging coil. Precontrast axial STIR and 3D FLASH without fat saturation sequences were obtained. Both before and after bolus injection of contrast, sequential 1-minute axial 3D FLASH with fat saturation sequences for 3 time points, with subtraction images and maximum intensity projections (MIP's) generated. Delayed sagittal FLASH images with fat saturation were also obtained. Computer-aided detection, including computer algorithm analysis of MRI image data for lesion detection and characterization, pharmacokinetic analysis, with further physician review for interpretation, was performed. COMPARISON: None. FINDINGS: Image quality: Excellent. There is moderate background parenchymal enhancement. Right breast: There is a 0.6 x 1.1 x 0.9 cm region of non masslike enhancement within the right breast at 11:00 o'clock at a posterior depth (series 10/image 88 and series 14/image 53). There is also a 0.5 x 1.6 by 0.6 cm region of non masslike enhancement slightly more inferior at approximately 12:00 o'clock at a posterior depth (series 10/image 73 and series 14/image 49). A 0.7 cm region of masslike enhancement is present at an anterior depth at 7 o'clock (series 10/image 46). This demonstrates increased STIR signal. Moderate enhancement is noted in the subareolar region. Left breast: A focal region of non masslike enhancement is present at 12:00 o'clock in the left breast which measures 0.7 x 1.1 x 0.7 cm (series 10/image 96 and series 15/image 64). A 0.7 x 0.4 x 0.5 cm region of non masslike enhancement is present central to the nipple at a posterior depth (series 10/image 67 and series 15/image 64). Avid enhancement is noted in the subareolar region. Miscellaneous: No axillary adenopathy. No intramammary adenopathy. Limited visualization of the heart and lungs are unremarkable. IMPRESSION: INCOMPLETE: NEEDS ADDITIONAL IMAGING EVALUATION 1. Multiple foci of non masslike enhancement within the bilateral breasts as above. Second-look ultrasound is recommended for a region on the right at 11:00 o'clock, 12:00 o'clock, and 7:00 o'clock. The region at 7:00 o'clock also demonstrates increased STIR signal suggesting the presence of a fibroadenoma. 2. Multiple regions of enhancement within the left breast as above. Second-look ultrasound is recommended for the region at 12 o'clock and the region central to the nipple. 3. Enhancement is noted in the subareolar region. Second-look ultrasound of the subareolar region is recommended. Electronically Signed By: Sindhu lombardo/:12/21/2022 14:49:09 letter sent: Additional Imaging Needed ACR BI-RADS Category 0: Incomplete 3340F
== END ==
PROVIDERS: PCP Registered Nurse Diabetes Educator; Referring Provider Registered Nurse Diabetes Educator; Visit Provider Registered Nurse Diabetes Educator
DX: Z12.39 Encounter for other screening for malignant neoplasm of breast (principal); Z15.89 Genetic susceptibility to other disease; N64.89 Other specified disorders of breast
CPT/HCPCS: 77049; A9579

== ENCOUNTER → 2022-12-29 14:30 | Outpatient (CLI) | payer OTHER, SELFPAY ==
--- NOTE | 2022-12-29 14:31 | DI.US.S_ITS ---
LIMITED ULTRASOUND OF LEFT BREAST AND AXILLA: 12/29/2022 CLINICAL: Abnormal MRI. Comparison is made to exams dated: 12/21/2022 breast MRI and 06/10/2022 mammogram - [facility]. Color flow ultrasound of the left breast axilla was performed on the areas of interest. Leiva scale images of the real-time examination were reviewed. IMPRESSION: PROBABLY BENIGN There is no sonographic abnormality seen in the left breast to correspond with the breast MRI findings at 12 o'clock, at the sub-areolar depth, or central to the nipple. These findings may represent background parenchymal enhancement on the patient's first breast MRI. A follow-up breast MRI in 6 months is recommended to demonstrate stability. This exam was interpreted at Station ID: [id number]. SUMMARY: The patient will be due for her bilateral mammogram at this time. Electronically Signed By: Sindhu lombardo/:12/29/2022 16:41:29 letter sent: Followup Recommended Ultrasound BI-RADS: 3 Probably benign
--- NOTE | 2022-12-29 14:31 | DI.US.S_ITS ---
ULTRASOUND OF RIGHT BREAST: 12/29/2022 CLINICAL: Abnormal MRI. Comparison is made to exams dated: 12/21/2022 breast MRI and 06/10/2022 mammogram - [facility]. Real-time ultrasound of the right breast was performed on the areas of interest. Leiva scale images of the real-time examination were reviewed. There is a 0.6 cm irregular mass in the right breast at 7 o'clock anterior depth. This irregular mass is hypoechoic. This correlates with breast MRI findings. IMPRESSION: PROBABLY BENIGN The 0.6 cm irregular mass in the right breast most likely is a fibroadenoma and is probably benign. There are no sonographic abnormalities seen in the right breast to correspond with the breast MRI findings at 11 and 12 o'clock. These foci of enhancement may represent prominent background enhancement, and are probably benign. A follow-up breast MRI in 6 months is recommended to demonstrate stability. This exam was interpreted at Station ID: [id number]. SUMMARY: The patient will be due for her bilateral mammogram at this time. Electronically Signed By: Sindhu lombardo/:12/29/2022 16:44:37 Entry: - 12/30/2022 10:13:58 Ultrasound BI-RADS: 3 Probably benign
== END ==
PROVIDERS: PCP Registered Nurse Diabetes Educator; Referring Provider Registered Nurse Diabetes Educator; Visit Provider Registered Nurse Diabetes Educator
DX: R92.8 Other abnormal and inconclusive findings on diagnostic imaging of breast (principal); N63.13 Unspecified lump in the right breast, lower outer quadrant; Z80.3 Family history of malignant neoplasm of breast; Z80.41 Family history of malignant neoplasm of ovary
CPT/HCPCS: 36415; 76642; 81162

== ENCOUNTER → 2023-06-28 13:38 | Outpatient (CLI) | payer OTHER, SELFPAY ==
--- NOTE | 2023-06-28 13:39 | DI.US.S_ITS ---
LIMITED ULTRASOUND OF RIGHT BREAST AND AXILLA: 06/28/2023 CLINICAL: Patient returns today to evaluate an asymmetry in the right breast. Comparison is made to exams dated: 06/28/2023 mammogram, 12/29/2022 ultrasound, 12/29/2022 ultrasound, 12/21/2022 breast MRI, and 06/10/2022 mammogram - [facility]. Color flow and real-time ultrasound of the right breast 7 o'clock, and axilla regions were performed. Leiva scale images of the real-time examination were reviewed. There is a stable 0.6 cm x 0.5 cm x 0.5 cm oval mass with an indistinct and microlobulated margin in the right breast at 7 o'clock anterior depth 3 cm from the nipple. This oval mass is hypoechoic. This correlates with breast MRI findings. No internal vascularity. No significant abnormalities were seen sonographically in the right axilla. IMPRESSION: PROBABLY BENIGN The stable 0.6 cm mass in the right breast is probably benign. A follow-up mammogram and an ultrasound in 6 months is recommended to demonstrate stability. No enlarged right axillary lymph nodes. This exam was interpreted at Station ID: [id number]. Electronically Signed By: Louie Merida M.D. slc/:06/28/2023 14:52:13 letter sent: Followup Recommended Ultrasound BI-RADS: 3 Probably benign
--- NOTE | 2023-06-28 13:39 | DI.MRI.S_ITS ---
BREAST MRI OF BOTH BREASTS: 06/28/2023 CLINICAL: High Risk Breast Cancer. PROCEDURE: MR BREAST BI WO/W CON INDICATIONS: high risk breast cancer screen TECHNIQUE: The patient was placed prone in a dedicated breast imaging coil. Precontrast axial STIR and 3D FLASH without fat saturation sequences were obtained. Both before and after bolus injection of contrast, sequential 1-minute axial 3D FLASH with fat saturation sequences for 3 time points, with subtraction images and maximum intensity projections (MIP's) generated. Delayed sagittal FLASH images with fat saturation were also obtained. Computer-aided detection, including computer algorithm analysis of MRI image data for lesion detection and characterization, pharmacokinetic analysis, with further physician review for interpretation, was performed. COMPARISON: [facility], , MR BREAST BI WO/W CON, 12/21/2022, 9:04. FINDINGS: Image quality: Excellent. There is extensive background parenchymal enhancement. Right breast: The 6 mm oval mass within the right breast at 7:00 o'clock at an anterior depth is similar in appearance to the comparison MRI dated December 21, 2022 (series 11/image 47). This was not successfully localized by second-look ultrasound. The previous region of non masslike enhancement described within the upper outer quadrant of the right breast is redemonstrated, but appears more extensive on the current study as well as appearing symmetric with the left breast suggesting diffuse background enhancement. No new suspicious foci of enhancement or mass lesions. Left breast: Similar to the right breast, there is symmetric, diffuse enhancement within the lateral aspect of the breast, predominantly within the upper outer quadrant. No suspicious mass lesions. Miscellaneous: No axillary or intramammary adenopathy. Limited visualization of the heart, lungs, and mediastinum are unremarkable. IMPRESSION: PROBABLY BENIGN 1. Stable mass within the right breast at 7:00 o'clock when compared with the prior MRI. This was not visualized by second-look ultrasound on December 29, 2022. Given the T2 hyperintensity and and contrast enhancement this most likely represents an occult fibroadenoma; however proteinaceous cyst or other benign lesion could also be considered in the differential. 12 month surveillance MRI recommended. 2. Symmetric, increased upper outer quadrant background parenchymal enhancement when compared with the prior study. Findings may have to do with variation in hormonal phase of the menstrual cycle. 3. No new suspicious findings. No discrete findings to explain right breast pain. Electronically Signed By: Sindhu Miranda M.D. lk/:07/01/2023 16:55:31 letter sent: Followup Recommended ACR BI-RADS Category 3: Probably benign 3343F
--- NOTE | 2023-06-28 13:39 | DI.MG.S_ITS ---
BILATERAL DIGITAL DIAGNOSTIC MAMMOGRAM 3D/2D SHORT-TERM FOLLOW-UP: 06/28/2023 CLINICAL: High risk Breast Cancer screening. Comparison is made to exams dated: 12/21/2022 breast MRI, 06/10/2022 mammogram, 12/29/2022 ultrasound, and 12/29/2022 ultrasound - [facility]. Both breasts are heterogeneously dense, which may obscure small masses (category c / 51-75% glandular tissue). No significant masses, calcifications, or other findings are seen in either breast. IMPRESSION: INCOMPLETE: NEEDS ADDITIONAL IMAGING EVALUATION No mammographic evidence of malignancy. A targeted ultrasound is recommended and will immediately follow. Based on the Tyrer Cuzick model (a risk assessment model) the patient's lifetime risk is 12.4% and her 10 year risk is 0.9%. According to the ACR, ACS, and NCCN guidelines, an annual breast MRI exam along with mammogram is recommended if the patient's lifetime risk is 20% or greater. This exam was interpreted at Station ID: [id number]. NOTE: For mammograms, a report in lay terms will be sent to the patient. Approximately 15% of breast malignancies will not be visualized mammographically. In the management of a palpable breast mass, a negative mammogram must not discourage biopsy of a clinically suspicious lesion. Electronically Signed By: Louie Merida M.D. slc/:06/28/2023 14:11:02 ACR BI-RADS Category 0: Incomplete 3340F
== END ==
PROVIDERS: PCP Registered Nurse Diabetes Educator; Referring Provider Registered Nurse Diabetes Educator; Visit Provider Registered Nurse Diabetes Educator
DX: Z15.89 Genetic susceptibility to other disease (principal); Z12.39 Encounter for other screening for malignant neoplasm of breast; R92.8 Other abnormal and inconclusive findings on diagnostic imaging of breast; N63.13 Unspecified lump in the right breast, lower outer quadrant
CPT/HCPCS: 76642; 77049; 77066; G0279

== ENCOUNTER → 2024-01-10 14:20 | Outpatient (CLI) | payer OTHER, SELFPAY ==
[2024-01-10 14:54] LABS: Add Manual Diff / Slide Review NO; Basophils Absolute Auto 0 /uL (0-100); Basophils Percent Auto 0.6 % (0-2); Eosinophils Absolute Auto 0 /uL (0-450); Eosinophils Percent Auto 0.3 % (2-4); Hematocrit 41.1 % (36-46); Hemoglobin 13.9 g/dL (12.0-16.0); Lymphocytes Absolute Auto 2300 /uL (1100-4500); Lymphocytes Percent Auto 30.9 % (25-40); Mean Corpuscular HGB Conc 33.8 % (30-36); Mean Corpuscular Hemoglobin 31.1 PG (26-34); Mean Corpuscular Volume 92.1 fL (80-100); Monocytes Absolute Auto 400 /uL (0-900); Monocytes Percent Auto 5.1 % (3-14); Neutrophils Absolute Auto 4600 /uL (1500-7000); Neutrophils Percent Auto 63.1 % (50-75); Platelet Count 363 X10^3/uL (150-400); Red Blood Cell Count 4.46 X10^6/uL (4.0-5.2); Red Cell Distribution Width 13.6 % (11.6-14.8); White Blood Cell Count 7.3 X10^3/uL (4.5-11.0)
[2024-01-10 17:43] LABS: Vitamin D 25 Hydroxy (D3) 24.4 ng/mL (30.0-100.0)
[2024-01-10 17:45] LABS: Follicle Stimulating Hormone 3.61 mIU/mL; Luteinizing Hormone 3.64 mIU/mL
[2024-01-10 19:40] LABS: Alanine Aminotransferase 12 IU/L (<35); Albumin 4.8 g/dL (3.5-5.0); Albumin Globulin Ratio 1.4 (1.0-2.8); Alkaline Phosphatase 62 U/L (38-126); Aspartate Aminotransferase 21 IU/L (14-36); BUN Creatinine Ratio 6.8 (6-22); Bilirubin Total 0.6 mg/dL (0.2-1.3); Blood Urea Nitrogen 4 mg/dL (7-17); Calcium 9.4 mg/dL (8.4-10.2); Carbon Dioxide 28 mmol/L (22-32); Chloride 104 mmol/L (98-107); Estimated Glomerular Filt Rate > 60 mL/min (>60); Globulin 3.5 g/dL (1.7-4.1); Glucose 94 mg/dL (70-100); HEMOLYSIS < 15 (0-50); Iron 59 ug/dL (37-170); Potassium 3.6 mmol/L (3.4-5.1); Sodium 137 mmol/L (137-145); Total Protein 8.3 g/dL (6.3-8.2)
[2024-01-10 19:50] LABS: Percent Iron Saturation 18 % (15-50); Total Iron Binding Capacity 331 ug/dL (265-497); Transferrin 281 mg/dL (206-381)
[2024-01-10 20:12] LABS: TSH w/ Reflex to FT4 2.11 uIU/mL (0.47-4.68)
[2024-01-10 20:32] LABS: Vitamin B12 283 pg/mL (239-931)
== END ==
LOC: LAB 14:27
PROVIDERS: PCP Registered Nurse Diabetes Educator; Referring Provider Physician Assistant; Visit Provider Physician Assistant
DX: R53.83 Other fatigue (principal); K31.84 Gastroparesis; E55.9 Vitamin D deficiency, unspecified; R63.5 Abnormal weight gain; N95.1 Menopausal and female climacteric states; Z98.890 Other specified postprocedural states
CPT/HCPCS: 80053; 82306; 82607; 82672; 83001; 83002; 83498; 83540; 83550; 84443; 85025

== ENCOUNTER → 2024-01-12 10:14 | Outpatient (CLI) | payer OTHER, SELFPAY ==
--- NOTE | 2024-01-12 10:15 | DI.MG.S_ITS ---
UNILATERAL RIGHT DIGITAL DIAGNOSTIC MAMMOGRAM 3D/2D SHORT-TERM FOLLOW-UP: 01/12/2024 CLINICAL: Patient returns for a 6 month follow up of the right breast. Comparison is made to exams dated: 06/28/2023 mammogram, 06/10/2022 mammogram, 06/28/2023 breast MRI, and 12/21/2022 breast MRI - [facility]. The right breast is heterogeneously dense, which may obscure small masses (category c / 51-75% glandular tissue). There is a stable asymmetry in the right breast anterior depth inferior region seen on the mediolateral oblique view only likely corresponding to prior US finding. No other significant masses or calcifications are seen in the breast. IMPRESSION: INCOMPLETE: NEEDS ADDITIONAL IMAGING EVALUATION The stable asymmetry in the right breast is indeterminate. An ultrasound is recommended. Based on the Tyrer Cuzick model (a risk assessment model) the patient's lifetime risk is 12.3% and her 10 year risk is 1.0%. According to the ACR, ACS, and NCCN guidelines, an annual breast MRI exam along with mammogram is recommended if the patient's lifetime risk is 20% or greater. This exam was interpreted at Station ID: [id number]. NOTE: For mammograms, a report in lay terms will be sent to the patient. Approximately 15% of breast malignancies will not be visualized mammographically. In the management of a palpable breast mass, a negative mammogram must not discourage biopsy of a clinically suspicious lesion. Electronically Signed By: Ilia Ashby M.D. lc/:01/12/2024 11:38:38 ACR BI-RADS Category 0: Incomplete 3340F
--- NOTE | 2024-01-12 10:15 | DI.US.S_ITS ---
LIMITED ULTRASOUND OF RIGHT BREAST: 01/12/2024 CLINICAL: 6 month follow-up of mass. Comparison is made to exams dated: 01/12/2024 mammogram, 06/28/2023 breast MRI, 06/28/2023 ultrasound, and 06/28/2023 mammogram - [facility]. Color flow, real-time, and continuous wave Doppler ultrasound of the right breast 7 o'clock region were performed. There is a stable 0.7 cm x 0.6 cm x 0.6 cm oval mass in the right breast at 7 o'clock anterior depth 3 cm from the nipple. This oval mass is hypoechoic. This correlates with mammography and breast MRI findings. IMPRESSION: PROBABLY BENIGN The stable 0.7 cm x 0.6 cm x 0.6 cm oval mass in the right breast is probably benign. A follow-up mammogram and an ultrasound in 6 months is recommended to demonstrate stability. This exam was interpreted at Station ID: [id number]. Electronically Signed By: Ilia Ashby M.D. lc/:01/12/2024 11:41:55 letter sent: Followup Recommended Ultrasound BI-RADS: 3 Probably benign
== END ==
PROVIDERS: PCP Registered Nurse Diabetes Educator; Referring Provider Registered Nurse Diabetes Educator; Visit Provider Registered Nurse Diabetes Educator
DX: R92.331 Mammographic heterogeneous density, right breast (principal); Z91.89 Other specified personal risk factors, not elsewhere classified; Z80.3 Family history of malignant neoplasm of breast; R92.8 Other abnormal and inconclusive findings on diagnostic imaging of breast; N63.13 Unspecified lump in the right breast, lower outer quadrant
CPT/HCPCS: 76642; 77065; G0279

== ENCOUNTER → 2024-11-06 10:14 | Outpatient (CLI) | payer OTHER, SELFPAY ==
--- NOTE | 2024-11-06 10:15 | DI.US.S_ITS ---
LIMITED ULTRASOUND OF RIGHT BREAST: 11/06/2024 CLINICAL: 6 month follow-up of cysts. Comparison is made to exams dated: 11/06/2024 mammogram, 01/12/2024 ultrasound, 01/12/2024 mammogram, 06/28/2023 breast MRI, and 06/28/2023 ultrasound - [facility]. Color flow and continuous wave Doppler ultrasound of the right breast 7 o'clock region were performed. There is a stable 0.8 cm x 0.6 cm x 0.6 cm oval mass with a microlobulated margin in the right breast at 7 o'clock anterior depth 3 cm from the nipple. Slightly increased compared to 12/29/2022. This oval mass is hypoechoic. This correlates with mammography and breast MRI findings. Color flow imaging demonstrates that there is no vascularity present. IMPRESSION: PROBABLY BENIGN The stable 0.8 cm mass in the right breast is probably benign. This most likely represents a fibroadenoma. A follow-up mammogram and an ultrasound in 12 months is recommended to demonstrate long-term stability. This exam was interpreted at Station ID: [id number]. Electronically Signed By: Louie Merida M.D. slc/:11/06/2024 11:23:11 letter sent: Followup Recommended ACR BI-RADS Category 3: Probably Benign
--- NOTE | 2024-11-06 10:15 | DI.MG.S_ITS ---
BILATERAL DIGITAL DIAGNOSTIC MAMMOGRAM 3D/2D SHORT-TERM FOLLOW-UP: 11/06/2024 CLINICAL: Short term follow up of the right breast, due for bilateral imaging. Comparison is made to exams dated: 01/12/2024 mammogram, 06/28/2023 mammogram, 06/10/2022 mammogram, 01/12/2024 ultrasound, and 06/28/2023 breast MRI - [facility]. The breasts are heterogeneously dense, which may obscure small masses (category c / 51-75% glandular tissue). There is a stable asymmetry in the right breast anterior depth inferior region seen on the mediolateral oblique view only. No other significant masses, calcifications, or other findings are seen in either breast. IMPRESSION: INCOMPLETE: NEED ADDITIONAL IMAGING EVALUATION The stable asymmetry in the right breast is indeterminate. A targeted ultrasound is recommended and will immediately follow. Based on the Tyrer Cuzick model (a risk assessment model) the patient's lifetime risk is 8.3% and her 10 year risk is 0.7%. According to the ACR, ACS, and NCCN guidelines, an annual breast MRI exam along with mammogram is recommended if the patient's lifetime risk is 20% or greater. This exam was interpreted at Station ID: [id number]. NOTE: For mammograms, a report in lay terms will be sent to the patient. Approximately 15% of breast malignancies will not be visualized mammographically. In the management of a palpable breast mass, a negative mammogram must not discourage biopsy of a clinically suspicious lesion. Electronically Signed By: Louie Merida M.D. slc/:11/06/2024 10:54:36 letter sent: Additional Imaging Needed ACR BI-RADS Category 0: Incomplete: Need Additional Imaging Evaluation
--- NOTE | 2024-11-06 10:15 | DI.MRI.S_ITS ---
BREAST MRI OF BOTH BREASTS- SHORT-TERM FOLLOW-UP: 11/06/2024 CLINICAL: Short term follow up of the right breast, due for bilateral imaging. PROCEDURE: MR BREAST BI WO/W CON INDICATIONS: one year re-check TECHNIQUE: The patient was placed prone in a dedicated breast imaging coil. Precontrast axial STIR and 3D FLASH without fat saturation sequences were obtained. Both before and after bolus injection of contrast, sequential 1-minute axial 3D FLASH with fat saturation sequences for 3 time points, with subtraction images and maximum intensity projections (MIP's) generated. Delayed sagittal FLASH images with fat saturation were also obtained. Contrast: 20 cc ProHance IV contrast. Computer-aided detection, including computer algorithm analysis of MRI image data for lesion detection and characterization, pharmacokinetic analysis, with further physician review for interpretation, was performed. COMPARISON: [facility], US BREAST RT LIMITED, 11/06/2024, 10:32. [facility], , MM DIAGNOSTIC MAMMO BI, 11/06/2024, 10:30. [facility], US BREAST RT LIMITED, 01/12/2024, 11:11. , MM DIAGNOSTIC MAMMO UNILAT RT, 01/12/2024, 10:28. [facility], US BREAST RT LIMITED, 06/28/2023, 14:14. [facility], MM DIAGNOSTIC MAMMO BI, 06/28/2023, 13:55. [facility], US BREAST RT LIMITED, 12/29/2022, 14:40. [facility], , MR BREAST BI WO/W CON, 12/21/2022, 9:04. [facility], MM DIAGNOSTIC MAMMO BI, 06/10/2022, 9:03. [facility], , MR BREAST BI WO/W CON, 06/28/2023, 15:40. FINDINGS: Image quality: Excellent. There is mild background parenchymal enhancement. Right breast: 7:00 o'clock anterior depth circumscribed mass measuring 0.9 cm, (), unchanged, and more remotely 0.7 cm on 12/21/2022. Minimal T2 hypointense signal. Kinetic analysis demonstrates slow initial phase and persistent delayed phase. No additional mass. No suspicious enhancement. Left breast: No mass or suspicious enhancement. Miscellaneous: No enlarged lymph nodes. IMPRESSION: PROBABLY BENIGN 1. Right breast: 7:00 o'clock anterior depth circumscribed mass measuring 0.9 cm. 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 2. Left breast: No mass or suspicious enhancement. 3. Lymph nodes: No enlarged lymph nodes. BIRADS 3 Recommend follow-up mammogram and ultrasound of the right breast in 1 year. COMMENT: The imaging literature indicates that a negative contrast breast MRI examination has a high sensitivity and a moderate specificity for detecting and excluding invasive carcinomas to a detection threshold of 3-5 mm; nonetheless, appropriate clinical and mammographic follow-up are recommended. MRI is not sensitive for detecting DCIS (ductal carcinoma in situ) and may not detect large invasive neoplasms that show only minimal enhancement such as mucinous carcinoma. If there are suspicious calcifications or clinically worrisome palpable masses, then biopsy should still be considered. Invasive neoplasms can be hidden by co-existent and benign enhancement caused by mastitis, hormone therapy effects, radiation therapy, , and recent biopsy or surgery. False positive examinations can occur in a number of circumstances, including breasts that have recently been subject to invasive procedures and those that contain atypical ductal hyperplasia, hormonally stimulated glandular tissue, fat necrosis, or radial scars. Dictated by: Louie Merida M.D. on 11/06/2024 at 16:54 This exam was interpreted at Station ID: [id number]. Electronically Signed By: Louie Merida M.D. slc/:11/06/2024 17:08:26 letter sent: Followup Recommended ACR BI-RADS Category 3: Probably Benign
== END ==
LOC: MAMMO 10:14
PROVIDERS: PCP Registered Nurse Diabetes Educator; Referring Provider Registered Nurse Diabetes Educator; Visit Provider Registered Nurse Diabetes Educator
DX: R92.8 Other abnormal and inconclusive findings on diagnostic imaging of breast (principal); N63.13 Unspecified lump in the right breast, lower outer quadrant; R92.333 Mammographic heterogeneous density, bilateral breasts; Z80.3 Family history of malignant neoplasm of breast; Z91.89 Other specified personal risk factors, not elsewhere classified
CPT/HCPCS: 76642; 77049; 77066; G0279; A9579

== ENCOUNTER → 2024-12-25 08:11 | Outpatient (CLI) | payer OTHER, SELFPAY ==
[2024-12-25 08:41] LABS: Hematocrit 39.5 % (36-46); Hemoglobin 13.4 g/dL (12.0-16.0); Mean Corpuscular Hemoglobin 31.2 PG (26-34); Mean Corpuscular Volume 91.8 fL (80-100); Platelet Count 296 X10^3/uL (150-400); Red Blood Cell Count 4.31 X10^6/uL (4.0-5.2); Red Cell Distribution Width 13.5 % (11.6-14.8); White Blood Cell Count 5.5 X10^3/uL (4.5-11.0)
[2024-12-25 09:10] LABS: Alanine Aminotransferase 19 IU/L (<35); Albumin 4.3 g/dL (3.5-5.0); Albumin Globulin Ratio 1.7 (1.0-2.8); Alkaline Phosphatase 60 U/L (38-126); Aspartate Aminotransferase 24 IU/L (14-36); BUN Creatinine Ratio 9.1 (6-22); Bilirubin Total 0.5 mg/dL (0.2-1.3); Blood Urea Nitrogen 6 mg/dL (7-17); Calcium 9.2 mg/dL (8.4-10.2); Carbon Dioxide 26 mmol/L (22-32); Chloride 104 mmol/L (98-107); Cholesterol 179 mg/dL (140-199); Estimated Glomerular Filt Rate > 60 mL/min (>60); Globulin 2.6 g/dL (1.7-4.1); Glucose 104 mg/dL (70-100); HDL Cholesterol 65 mg/dL (40-60); HEMOLYSIS < 15 (0-50); LDL Cholesterol Calculated 97 mg/dL (<100); Potassium 3.9 mmol/L (3.4-5.1); Sodium 139 mmol/L (137-145); Total Protein 6.9 g/dL (6.3-8.2); Triglycerides 87 mg/dL (35-150)
[2024-12-25 09:47] LABS: TSH w/ Reflex to FT4 1.65 uIU/mL (0.47-4.68)
== END ==
PROVIDERS: PCP Registered Nurse Diabetes Educator; Referring Provider Registered Nurse Diabetes Educator; Visit Provider Registered Nurse Diabetes Educator
DX: M54.41 Lumbago with sciatica, right side (principal); G89.29 Other chronic pain; M19.012 Primary osteoarthritis, left shoulder; M19.011 Primary osteoarthritis, right shoulder; Z87.39 Personal history of other diseases of the musculoskeletal system and connective tissue; M54.9 Dorsalgia, unspecified; D64.9 Anemia, unspecified; Z80.8 Family history of malignant neoplasm of other organs or systems
CPT/HCPCS: 36415; 80053; 80061; 82306; 84443; 85027

== ENCOUNTER → 2025-09-10 10:50 | Outpatient (CLI) | payer OTHER, SELFPAY ==
--- NOTE | 2025-09-10 10:51 | DI.US.S_ITS ---
PROCEDURE: US PERIPH VENOUS LOW EXTREM LT INDICATIONS: Pain swelling left calf x one week TECHNIQUE: Real-time imaging, as well as color and pulse Doppler interrogation, were performed of the lower extremity deep veins from the inguinal ligament to the popliteal fossa, with documentation of the visualized calf veins. COMPARISON: None. FINDINGS: The common femoral, femoral, popliteal, and the visualized calf veins are normally compressible, and free of intraluminal thrombus. Color and pulse Doppler demonstrate normal phasic intraluminal flow. There is normal augmentation response to distal compression maneuver. IMPRESSION: Negative left lower extremity duplex venous ultrasound for DVT. Dictated by: Emiliano Hernández M.D. on 09/10/2025 at 12:23 Approved by: Emiliano Hernández M.D. on 09/10/2025 at 12:25
== END ==
PROVIDERS: Family Provider Registered Nurse Diabetes Educator; PCP Registered Nurse Diabetes Educator; Referring Provider Registered Nurse Diabetes Educator; Visit Provider Physician Assistant
DX: M79.662 Pain in left lower leg (principal); M79.89 Other specified soft tissue disorders
CPT/HCPCS: 93971